=== PATIENT | female | born 1975 | race Caucasian/White ===

== ENCOUNTER 2017-09-02 13:26 | Emergency (ER) | payer OTHER ==
[2017-09-02] MEDS ORDERED: Ondansetron 4 MG/2 ML SDV IVPUSH ONE ×2 (13:33→14:09)
--- NOTE | 2017-09-02 13:39 | EDM.PDOC ---
ED HPI GENERAL MEDICAL PROBLEM - General Chief Complaint: Gastrointestinal Problem Stated Complaint: DIZZINESS,VOMITING Time Seen by Provider: 09/02/17 13:31 Source of Information: Reports: Patient History Limitations: Reports: No Limitations - History of Present Illness INITIAL COMMENTS - FREE TEXT/NARRATIVE: Patient was on doing yard work this morning and had a sudden onset of severe nausea with vomiting lightheaded and dizziness. The vomiting has lasted about 90 minutes now. With vomiting every 15-20 minutes. Patient denies eating any raw food within the last 48 hours denies any foreign travel within the last month Onset: Today, Sudden Duration: Getting Worse Location: Reports: Abdomen - Related Data Allergies Allergy/AdvReac Type Severity Reaction Status Date / Time No Known Allergies Allergy Verified 09/02/17 13:48 Home Meds: Home Meds Metoclopramide HCl [Reglan] 10 mg PO Q6HR PRN #20 tablet 09/02/17 [Rx] Promethazine [Phenergan] 0.5 ml TOP ASDIRECTED PRN #10 syringe 09/02/17 [Rx] Scopolamine [Transderm-Scop] 1 each TD DAILY PRN #10 patch.td.3 09/02/17 [Rx] ED ROS GENERAL - Review of Systems Review Of Systems: See Below Constitutional: Reports: No Symptoms Respiratory: Reports: No Symptoms Cardiovascular: Reports: No Symptoms Endocrine: Reports: No Symptoms GI/Abdominal: Reports: Nausea, Vomiting. Denies: Abdominal Pain, Anorexia, Distension, Flatus, Hematochezia, Stool Incontinence : Reports: No Symptoms Musculoskeletal: Reports: No Symptoms Skin: Reports: No Symptoms ED EXAM, GENERAL - Physical Exam Exam: See Below Exam Limited By: No Limitations General Appearance: Alert, WD/WN, No Apparent Distress Head: Atraumatic, Normocephalic Neck: Normal Inspection, Supple, Non-Tender, Full Range of Motion Respiratory/Chest: No Respiratory Distress, Lungs Clear, Normal Breath Sounds, No Accessory Muscle Use, Chest Non-Tender Cardiovascular: Normal Peripheral Pulses GI/Abdominal: Normal Bowel Sounds, Soft, Non-Tender, No Organomegaly, No Distention, No Abnormal Bruit, No Mass Back Exam: Normal Inspection Extremities: Normal Inspection, Normal Range of Motion, Normal Capillary Refill Neurological: Alert, Oriented, CN II-XII Intact, Normal Cognition, Normal Gait Course - Vital Signs Last Recorded V/S: Last Vital Signs Temp 35.9 C 09/02/17 13:40 Pulse 74 09/02/17 13:40 Resp 16 09/02/17 13:40 BP 116/55 L 09/02/17 13:40 Pulse Ox 96 09/02/17 13:40 - Orders/Labs/Meds Orders: Active Orders 24 hr Category Date Time Status EKG 12 Lead [EKG Documentation Completion] [RC] URGENT Care 09/02/17 13:34 Ordered Head wo Cont [CT] Stat Exams 09/02/17 15:01 Taken Sodium Chloride 0.9% [Normal Saline] 1,000 ml Med 09/02/17 13:45 Active IV ASDIRECTED Medication Orders Sodium Chloride (Normal Saline) 1,000 mls @ 500 mls/hr IV ASDIRECTED DONTE Last Admin: 09/02/17 13:40 Dose: 500 mls/hr Metoclopramide HCl (Reglan) 5 mg IVPUSH ONETIME ONE Stop: 09/02/17 16:31 Last Admin: 09/02/17 16:18 Dose: 5 mg Meds: Medications Generic Name Dose Route Start Last Admin Trade Name Freq PRN Reason Stop Dose Admin Sodium Chloride 1,000 mls @ 500 mls/hr 09/02/17 13:45 09/02/17 13:40 Normal Saline IV 500 mls/hr ASDIRECTED DONTE Administration Metoclopramide HCl 5 mg 09/02/17 16:30 09/02/17 16:18 Reglan IVPUSH 09/02/17 16:31 5 mg ONETIME ONE Administration Discontinued Medications Generic Name Dose Route Start Last Admin Trade Name Freq PRN Reason Stop Dose Admin Dimenhydrinate 50 mg 09/02/17 14:08 Dimenhydrinate IVPUSH 09/02/17 14:09 ONETIME ONE Meclizine HCl 25 mg 09/02/17 14:59 Antivert PO 09/02/17 15:00 ONETIME ONE Ondansetron HCl 4 mg 09/02/17 13:33 09/02/17 13:42 Zofran IVPUSH 09/02/17 13:34 4 mg ONETIME ONE Administration Ondansetron HCl 4 mg 09/02/17 14:09 09/02/17 14:56 Zofran IVPUSH 09/02/17 14:10 4 mg ONETIME ONE Administration Promethazine HCl 0.5 ml 09/02/17 15:09 09/02/17 16:19 Phenergan TOP 09/02/17 15:10 0.5 ml ASDIRECTED ONE Administration Scopolamine 1.5 mg 09/02/17 14:59 09/02/17 15:37 Transderm-Scop TOP 09/02/17 15:00 1.5 mg ONETIME ONE Administration - Re-Assessments/Exams Free Text/Narrative Re-Assessment/Exam: 09/02/17 14:49 pt is resting comfortably. Fluids are in. Nausea and vomiting has stopped. 09/02/17 16:20 Pt continues to have ongoing nausea and vomiting. It however has been to slow down and pt is able to move her head without vomiting instantly. CT revealed negative findings to conclude any grave etiologies. Departure - Departure Time of Disposition: 17:50 Disposition: Home, Self-Care 01 Condition: Good Clinical Impression: Vertigo - Discharge Information Prescriptions: Metoclopramide HCl [Reglan] 10 mg PO Q6HR PRN #20 tablet PRN Reason: Dizziness Scopolamine [Transderm-Scop] 1 each TD DAILY PRN #10 patch.td.3 PRN Reason: Dizziness Instructions: Nausea and Vomiting, Adult, [id number] Referrals: Yarely Sterling PA-C [Primary Care Provider] - Forms: ED Department Discharge - My Orders Last 24 Hours: My Active Orders 09/02/17 13:34 EKG 12 Lead [EKG Documentation Completion] [RC] URGENT 09/02/17 13:45 Sodium Chloride 0.9% [Normal Saline] 1,000 ml IV ASDIRECTED 09/02/17 15:01 Head wo Cont [CT] Stat - Assessment/Plan Last 24 Hours: My Active Orders 09/02/17 13:34 EKG 12 Lead [EKG Documentation Completion] [RC] URGENT 09/02/17 13:45 Sodium Chloride 0.9% [Normal Saline] 1,000 ml IV ASDIRECTED 09/02/17 15:01 Head wo Cont [CT] Stat
[2017-09-02] MEDS ORDERED: Sodium Chloride 0.9% 1,000 ML IV SCH (13:45)
[2017-09-02] MEDS ORDERED: dimenhyDRINATE 50 MG/ML SDV IVPUSH ONE (14:08)
[2017-09-02] MEDS ORDERED: Meclizine 25 MG Tab PO ONE (14:59)
[2017-09-02] MEDS ORDERED: Scopolamine 1.5 MG Transdermal Patch TOP ONE (14:59)
[2017-09-02] MEDS ORDERED: Promethazine Topical Gel 0.5 ML Syringe TOP ONE (15:09)
[2017-09-02] MEDS ORDERED: Metoclopramide 10 MG/2 ML SDV IVPUSH ONE (16:30)
[2017-09-02] MEDS ORDERED: Promethazine Topical Gel 0.5 ML Syringe ONE ×2 (17:29→17:33)
== END 2017-09-02 17:35 | disposition home or self-care (01) ==
LOC: VM.ED 13:26
DX: R42 Dizziness and giddiness (principal); Z79.899 Other long term (current) drug therapy
CPT/HCPCS: 70450; 96361; 96374; 96375; 96376; 99284; A9270; J2405; J2765; J7030; 93005